=== PATIENT | male | born 1950 | race Caucasian/White ===

== ENCOUNTER 2016-08-04 08:55 | Day surgery (SDC) | payer MEDICARE ==
[2016-07-31 08:53] VITALS: BMI 37.6
[~2016-08-04 08:55] MED LIST: LACTATED RINGERS 1,000 ML IV SCH; LIDOCAINE 1% 20 ML VIAL (10MG/ML) FOR IV START INTRADERMA PRN
[2016-08-04 09:15] VITALS: TEMP 97
[2016-08-04] MEDS ORDERED: PROPOFOL 10 MG/ML 20 ML VIAL IV ONE (10:00)
--- NOTE | 2016-08-04 10:27 | P.PCN ---
Date of Procedure: 08/04/16 Preoperative Diagnosis: Postoperative Diagnosis: Procedure(s) Performed: Procedure: Colonoscopy and polypectomy. Preoperative diagnosis: Screening for neoplasia, patient has history of colon cancer. Postoperative diagnosis: Small polyp at the rectosigmoid junction snared but no large polyps or cancer. Preparation: HalfLytely prep. Sedation: Was provided by anesthesia. Brief clinical history: The patient is a 65-year-old male who was diagnosed with colon cancer at the hepatic flexure in July 2015 for which he underwent resection followed by 16 weeks of chemotherapy. The patient has been doing well and this would be a screening exam because of that history. Procedure: With the patient on his left lateral decubitus position and after informed consent and adequate sedation, the perianal area was inspected and it did not show any fissures or fistulas. There were no masses felt on digital rectal examination. The Olympus CFQ 160L video colonoscope was then inserted in the rectum in the usual fashion and advanced to the cecum. There was a small flat polypoid area at the rectosigmoid junction which I snared and retrieved by suction, but there were no other polyps or tumors. The resection area on the right side was free of cancer or other abnormalities. I retroflexed the endoscope in the rectum before the endoscope was with drawn. The patient tolerated the procedure well. Plan: The patient was reassured. With his history, I am recommending repeat colonoscopy in 1-2 years. He will follow up with you as planned. Implants: Indications for Procedure: Operative Findings: Description of Procedure:
[2016-08-04 10:30] VITALS: PULSE 56
[2016-08-04 10:47] VITALS: BP 131/70; RESP 20
== END 2016-08-04 10:58 | disposition home or self-care (01) ==
LOC: ORWHC2ENDO 08:55
DX: Z12.11 Encounter for screening for malignant neoplasm of colon (principal); D12.7 Benign neoplasm of rectosigmoid junction; Z90.49 Acquired absence of other specified parts of digestive tract; Z85.038 Personal history of other malignant neoplasm of large intestine; I48.91 Unspecified atrial fibrillation; I10 Essential (primary) hypertension; Z79.899 Other long term (current) drug therapy
CPT/HCPCS: 88305; 45385; J2704

== ENCOUNTER → 2016-08-18 | Outpatient (CLI) | payer MEDICARE ==
[2016-08-18 13:42] LABS: Blood Urea Nitrogen 23 mg/dL (9-20); Non-African American GFR(MDRD) >60 (>60 ml/min/1.73 sqM)
--- NOTE | 2016-08-18 14:44 | CT ---
EXAMINATION TYPE: CT abdomen pelvis w con DATE OF EXAM: 08/18/2016 COMPARISON: CT abdomen and pelvis August 06, 2015. PET/CT August 25, 2015 HISTORY: f/u colon ca CT DLP: 1982.8 mGycm, Automated Exposure Control for Dose Reduction was Utilized. CONTRAST: CT scan of the abdomen and pelvis is performed with oral and with IV Contrast, patient injected with 100 mL of Omnipaque 300. FINDINGS: LUNG BASES: No significant abnormality is appreciated. LIVER/GB: No significant abnormality is appreciated. PANCREAS: No significant abnormality is seen. SPLEEN: No significant abnormality is seen. ADRENALS: No significant abnormality is seen. KIDNEYS: No significant abnormality is seen. BOWEL: Oral contrast does not reach colonic level making evaluation slightly suboptimal. Surgical kathryn nges from right-sided partial colectomy are redemonstrated. There is some fecal prominence of distal ileal loop near level of anastomosis. No suspicious small or large bowel dilatation is identified. PROSTATE/SEMINAL VESICLES: Some central zone calcifications are seen in prostate gland. LYMPH NODES: No greater than 1cm abdominal or pelvic lymph nodes are appreciated. OSSEOUS STRUCTURES: Marked disc space narrowing lumbosacral junction is redemonstrated. OTHER: Scar above the umbilicus is seen near axial image 30. There are small left greater than right fat-containing inguinal hernias redemonstrated felt stable. IMPRESSION: No new mass or adenopathy is identified to suggest neoplastic recurrence
== END | disposition home or self-care (01) ==
LOC: RADCTMAIN 13:00
PROVIDERS: ATTEND Internal Medicine Hematology & Oncology
DX: C18.3 Malignant neoplasm of hepatic flexure (principal)
CPT/HCPCS: 82565; 84520; 74177; 36415; Q9967

== ENCOUNTER → 2017-08-19 | Outpatient (CLI) | payer MEDICARE ==
[2017-08-19 07:53] LABS: Blood Urea Nitrogen 22 mg/dL (9-20)
--- NOTE | 2017-08-19 09:58 | CT ---
EXAMINATION TYPE: CT abdomen pelvis w con DATE OF EXAM: 08/19/2017 COMPARISON: CT abdomen pelvis August 18, 2016 and older studies. PET/CT August 25, 2015. HISTORY: Colon cancer with history of bowel resection. CT DLP: 2198.5 mGycm, Automated Exposure Control for Dose Reduction was Utilized. CONTRAST: CT scan of the abdomen and pelvis is performed with oral and with IV Contrast, patient injected with 100 mL of Isovue 300. FINDINGS: LUNG BASES: Cardiomegaly is redemonstrated. Some patchy bibasilar linear scarring and/or atelectasis is again seen. LIVER/GB: There is stable subcentimeter lesion anteriorly left hepatic lobe axial image 20 that is to o small to further characterize. PANCREAS: No significant abnormality is seen. SPLEEN: No significant abnormality is seen. ADRENALS: No significant abnormality is seen. KIDNEYS: No significant abnormality is seen. BOWEL: The oral contrast reaches level of rectum. Surgical changes from right-sided hemicolectomy and small bowel anastomosis are redemonstrated. There appears to be interval colonization of the neoterm inal ileum. PROSTATE/SEMINAL VESICLES: No gross abnormality seen. LYMPH NODES: No greater than 1cm abdominal or pelvic lymph nodes are appreciated. OSSEOUS STRUCTURES: Marked disc space narrowing at lumbosacral junction is redemonstrated. There is d egenerative change at pubic symphysis with narrowing and subchondral cystic change redemonstrated. Th ere is straightening of spine with moderate multilevel spurring in the thoracic spine redemonstrated. OTHER: Focal eventration along vertical scar midline anterior abdominal wall axial image 34 is unchan ged from prior study without new hernia defect clearly identified. Small fat-containing incisional he rnia axial image 50 is slightly more prominent versus prior study coronal image 12 versus most recent prior. Stable small fat-containing left inguinal hernia. IMPRESSION: No new mass or adenopathy is seen to suggest neoplastic recurrence. Slightly more promin ent fat-containing ventral wall incisional hernia otherwise no significant interval change.
== END | disposition home or self-care (01) ==
LOC: RADCTMAIN 07:16
PROVIDERS: ATTEND Internal Medicine Hematology & Oncology
DX: C18.3 Malignant neoplasm of hepatic flexure (principal); K43.2 Incisional hernia without obstruction or gangrene; J30.2 Other seasonal allergic rhinitis
CPT/HCPCS: 82565; 84520; 74177; 36415; Q9967

== ENCOUNTER 2018-07-31 08:09 | Emergency (ER) | payer MEDICARE ==
[2018-07-31 08:14] VITALS: BP 162/87; PULSE 62; RESP 16; TEMP 97.9
--- NOTE | 2018-07-31 08:26 | ED ---
Extremity Problem HPI - General Chief complaint: Extremity Problem,Nontraumatic Stated complaint: rt leg pain Time Seen by Provider: 07/31/18 08:20 Source: patient Mode of arrival: wheelchair Limitations: no limitations - History of Present Illness Initial comments: 67-year-old male with history of previous right TKA, Gout, colon CA in remission presenting today for evaluation and ultrasound. Patient states that he has had right knee pain for the past 2 weeks. He states he has an upcoming appointment on Thursday with Dr. Lira to schedule a replacement of the left knee. He states he had x-rays done of the right knee to ensure that there is no issues with the prosthesis. He states this was obtained on Thursday of last week. He states Dr. Lira noted no abnormalities. Patient speaks surgeon thought it may be related to gout as patient has a strong history the patient was instructed to take colchicine PRN and his allopurinol daily. Patient states the knee has never been warm red swollen. He denies any swelling of the right lower extremity. He describes the pain as a sharp sensation that increases with weightbearing he states it radiates up towards the right mid thigh. Patient denies any pain from the back radiating downward. He denies recent falls or trauma. Patient denies any fever or chills night sweats or warmth to palpation of the knee. Patient states that the pain seems to increase at night. Patient states he is able to freely actively range at the right knee without difficulty or pain. Remaining ROS (-). Patient states he contacted his PCP today who Dr. Mendez who recommended presentation to the ER for an ultrasound to r/o DVT, then he is to f/u Thursday with PCP. Patient denies any posterior knee pain/calf pain. Upon arrival patient is afebrile. - Related Data Home Medications Medication Instructions Recorded Confirmed Losartan Potassium [Cozaar] 100 mg PO HS 12/20/13 07/31/18 hydrALAZINE HCL [Apresoline] 25 mg PO BID 05/14/15 07/31/18 Atenolol [Tenormin] 25 mg PO BID 07/12/15 07/31/18 Ergocalciferol (Vitamin D2) 125 mg PO MAURER 01/30/16 07/31/18 [Vitamin D2] Gabapentin [Neurontin] 200 mg PO BID 01/30/16 07/31/18 Aspirin [Adult Low Dose Aspirin EC] 81 mg PO DAILY 07/31/16 07/31/18 Allopurinol [Zyloprim] 300 mg PO AC-BRKFST 03/05/18 07/31/18 Colchicine [Colcrys] 0.6 mg PO DAILY PRN 07/31/18 07/31/18 Cyanocobalamin (Vitamin B-12) 1,000 mcg PO DAILY 07/31/18 07/31/18 [Vitamin B-12] Glucosamine Sulfate 1,000 mg PO HS 07/31/18 07/31/18 Glucosamine Sulfate 500 mg PO QAM 07/31/18 07/31/18 Ibuprofen [Motrin Ib] 400 mg PO TID PRN 07/31/18 07/31/18 Loratadine [Claritin] 10 mg PO QAM 07/31/18 07/31/18 Naproxen Sodium [Aleve] 440 mg PO BID PRN 07/31/18 07/31/18 Pyridoxine HCl (Vitamin B6) 200 mg PO QAM 07/31/18 07/31/18 [Vitamin B-6] Previous Rx's Medication Instructions Recorded Acetaminophen with Codeine 1 tab PO Q6H PRN 3 Days #12 tab 07/31/18 [Tylenol w/codeine #3] Allergies Allergy/AdvReac Type Severity Reaction Status Date / Time No Known Allergies Allergy Verified 07/31/18 08:55 Review of Systems ROS Statement: Those systems with pertinent positive or pertinent negative responses have been documented in the HPI. ROS Other: All systems not noted in ROS Statement are negative. Past Medical History Past Medical History: Atrial Fibrillation, Cancer, Hypertension Additional Past Medical History / Comment(s): DURING RT KNEE ARTHROSCOPY WENT INTO AFIB.( DEC 2013), hx colon cancer, neuropathy as a result of chemo History of Any Multi-Drug Resistant Organisms: None Reported Past Surgical History: Bowel Resection, Heart Catheterization, Hernia Repair, Loulou int Replacement, Orthopedic Surgery Additional Past Surgical History / Comment(s): CARDIOVERSION , daniela knee arthroscopy, rt knee replacement, MANIPULATION OF RIGHT KNEE ,08-02-15 COLECTOMY, mediport/later removed Past Anesthesia/Blood Transfusion Reactions: Previous Problems w/ Anesthesia Additional Past Anesthesia/Blood Transfusion Reaction / Comment(s): went into a- fib during knee surgery Past Psychological History: No Psychological Hx Reported Smoking Status: Never smoker Past Alcohol Use History: Daily Past Drug Use History: None Reported - Past Family History Sister(s) Family Medical History: Cancer Additional Family Medical History / Comment(s): LUNG CANCER Father Family Medical History: Coronary Artery Disease (CAD), Myocardial Infarction ([place]) Additional Family Medical History / Comment(s): FROM HEART DISEASE Mother Sister(s) Family Medical History: Cancer Additional Family Medical History / Comment(s): smoker, of lung cancer Mother Additional Family Medical History / Comment(s): BRAIN ANUERYSM AT AGE 60 General Exam - General Exam Comments Initial Comments: General: The patient is awake and alert, in no distress, and does not appear acutely ill. Eye: +3 mm pupils are equal, round and reactive to light, extra-ocular movements are intact. No nystagmus. There is normal conjunctiva bilaterally. No signs of icterus. Cardiovascular: There is a regular rate and rhythm. No murmur, rub or gallop is appreciated. Respiratory: Lungs are clear to auscultation, respirations are non-labored, breath sounds are equal. No wheezes, stridor, rales, or rhonchi. Musculoskeletal: Upon inspection of the knees bilaterally there is a longitudinal scar on the right anterior knee. There is no erythema, soft tissue swelling. Patient has no swelling of the calves. (-) Homans. Normal ROM at the knees b/l, no tenderness. Strength 5/5. Sensation intact both proximal and distal to injury site. Patient has tenderness to right knee with weight bearing. Radial and DP pulses equal bilaterally 2+. Neurological: A&O x 3. CN II-XII intact, There are no obvious motor or sensory deficits. Coordination appears grossly intact. Speech is normal. Skin: Skin is warm and dry and no rashes or lesions are noted. Psychiatric: Cooperative, appropriate mood & affect, normal judgment. Limitations: no limitations Course Vital Signs 07/31/18 07/31/18 08:11 10:37 Temperature 97.9 F 97.9 F Pulse Rate 62 62 Respiratory 16 16 Rate Blood Pressure 162/87 162/87 O2 Sat by Pulse 96 96 Oximetry Medical Decision Making - Medical Decision Making 67-year-old male presenting from right knee pain. This is been ongoing for the past 2-3 weeks. Patient has been evaluated by orthopedic surgery and received plain films on Thursday. Told there is no abnormality. Patient had imaging study of the right hip today with concern of possibly referred pain although patient does not appear overtly tender at the right hip. 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 It is unclear this is the etiology of pain appears more tender in the right knee. Patient is able to fully active and passively range of the right knee without any significant discomfort. When he weightbears upon standing that isn't experiences the pain. He states it begins in the knee and radiates up towards the leg. Although patient showed no signs of deep venous thrombosis there was no evidence of swelling or calf pain on examination patient was sent from primary care provider for ultrasound. Also was obtained revealing no evidence of acute DVT. Patient denies any constitutional symptoms. Patient does have history of gout. At this time is unclear the exact etiology of patient's right knee pain, however I do not feel this is infectious, or vascular. Most likely inflammatory. Patient has upcoming appointments with primary care provider as well as orthopedic surgery within the next 5 days. I recommended going to these appointments. Patient is provided pain medication for breakthrough pain in the emergency Department. As well as an outpatient prescription. All findings were discussed with patient as well as the importance of follow-up and return parameters. Patient was disch arged appearing well to discuss the case attending provider Dr. Zuluaga Disposition Clinical Impression: Right knee pain, Femoral acetabular impingement Disposition: HOME SELF-CARE Condition: Good Instructions (If sedation given, give patient instructions): Knee Pain (ED) Additional Instructions: Please use medication as discussed. Please follow-up with family doctor and orthopedic surgeon as scheduled. Please return to emergency room if the symptoms increase or worsen or for any other concerns, fever, knee swelling. Prescriptions: Acetaminophen with Codeine [Tylenol w/codeine #3] 1 tab PO Q6H PRN 3 Days #12 tab PRN Reason: Severe Pain Is patient prescribed a controlled substance at d/c from ED?: Yes When asked, does pt state using other controlled substances?: No If prescribed controlled substance>3 days was MAPS reviewed?: Prescribed <3 Days If opioid is for acute pain is fill amount 7 days or less?: Yes If Rx opioid, was Start Talking consent form obtained?: Yes Referrals: Fiorella Mendez MD [Primary Care Provider] - 1-2 days Time of Disposition: :15
[2018-07-31] MEDS ORDERED: HYDROcodone/APAP 7.5-325MG 1 EACH TAB PO ONE (08:49)
--- NOTE | 2018-07-31 09:21 | US ---
EXAMINATION TYPE: US venous doppler duplex LE RT DATE OF EXAM: 07/31/2018 9:12 AM COMPARISON: NONE CLINICAL HISTORY: Pain. Pain right leg for 10 days SIDE PERFORMED: right TECHNIQUE: The lower extremity deep venous system is examined utilizing real time linear array sonog anna with graded compression, doppler sonography and color-flow sonography. VESSELS IMAGED: External Iliac Vein (EIV) Common Femoral Vein Deep Femoral Vein Greater Saphenous Vein * Femoral Vein Popliteal Vein Small Saphenous Vein * Proximal Calf Veins (* superficial vessels) Right Leg: No evidence of DVT No popliteal fossa lesion is seen. IMPRESSION: THIS EXAMINATION IS NEGATIVE FOR DVT WITHIN THE RIGHT LEG.
--- NOTE | 2018-07-31 10:01 | XR ---
EXAMINATION TYPE: XR Hip Complete RT , 2 VIEWS DATE OF EXAM ORDERED: 07/31/2018 HISTORY: Pain. COMPARISON: None. FINDINGS: The right femoral head is nonspherical. There is a small "bump" on the femoral neck. There is mild degenerative change. No fracture, dislocation or other acute osseous lesion is seen. IMPRESSION: PLEASE CORRELATE CLINICALLY FOR FEMOROACETABULAR IMPINGEMENT SYNDROME.
== END 2018-07-31 10:37 | disposition home or self-care (01) ==
LOC: EC 08:09
DX: M25.851 Other specified joint disorders, right hip (principal); M25.561 Pain in right knee; I48.91 Unspecified atrial fibrillation; I10 Essential (primary) hypertension; M10.9 Gout, unspecified; Z85.038 Personal history of other malignant neoplasm of large intestine; Z92.21 Personal history of antineoplastic chemotherapy; Z95.818 Presence of other cardiac implants and grafts; Z96.651 Presence of right artificial knee joint; Z79.82 Long term (current) use of aspirin; Z79.899 Other long term (current) drug therapy
CPT/HCPCS: 73502; 99284

== ENCOUNTER → 2018-08-17 | Outpatient (CLI) | payer MEDICARE ==
[2018-08-17 10:15] LABS: African American GFR (CKD) >90 (>60 ml/min/1.73 sqM); Blood Urea Nitrogen 26 mg/dL (9-20)
--- NOTE | 2018-08-17 12:53 | CT ---
EXAMINATION TYPE: CT abdomen pelvis w con DATE OF EXAM: 08/17/2018 COMPARISON: 08/19/2017 HISTORY: 68-year-old male Follow up for colon CA. TECHNIQUE: Contiguous axial scanning of the abdomen and pelvis following administration of 100 ml Iso dano 300 IV contrast. Delayed images through the kidneys and coronal/sagittal reconstructions perform ed. CT DLP: 1875.3 mGycm Automated exposure control for dose reduction was used. FINDINGS: Heart borderline to mildly enlarged. Some mild dependent atelectasis. Mildly ectatic lower descending thoracic aorta at 2.9 cm. Stable tiny subcentimeter hypodensity anterior left liver lobe, likely cyst. Portal venous system is patent. No biliary ductal dilatation. Gallbladder, adrenal glands, spleen with hilar splenule, right kidney, and pancreas appear within nor mal limits. Tiny cortical hypodensity lateral left kidney is unchanged from 08/19/2017 suggesting a benign cyst. No dilated small bowel, free fluid, or free air. No mesenteric or retroperitoneal lymphadenopathy. Small epigastric ventral abdominal wall incisional hernia containing fat measuring 2.5 cm wide. A cou ple additional small incisional defects are present, just below measuring 2.1 cm wide. Not significan tly changed. Moderate stool in the right-sided colon. No pericolonic inflammatory change. Prior partial right-side d colon resection near the hepatic flexure. Mild circumferential bladder wall thickening. Suggestion of some scarring along the right inguinal re gion. Prostate gland mildly enlarged at 4.6 cm wide. No abnormal fluid collection in the pelvis or pe lvic lymphadenopathy. Bones: Degenerative changes at the hips and right SI joint. Additional degenerative changes lower lum bar spine. Diffuse disc bulge at L4-L5 cause moderate or severe spinal canal stenosis. IMPRESSION: 1. STABLE TINY SUBCENTIMETER HYPODENSITY LEFT LIVER LOBE, LIKELY A BENIGN CYST. PARTIAL RIGHT-SIDED C OLON RESECTION. NO EVIDENCE FOR METASTATIC DISEASE IN THE ABDOMEN OR PELVIS. 2. SMALL FAT-CONTAINING INCISIONAL HERNIAS ALONG THE SUPRAUMBILICAL VENTRAL MIDLINE. 3. CIRCUMFERENTIAL BLADDER WALL THICKENING COULD REPRESENT CHRONIC BLADDER WALL HYPERTROPHY OR CYSTIT IS. 4. POSSIBLE MODERATE OR SEVERE SPINAL CANAL STENOSIS SECONDARY TO DISC HERNIATION AT L4-L5.
== END ==
LOC: RADCTMAIN 09:36
PROVIDERS: ATTEND Internal Medicine Hematology & Oncology
DX: K43.2 Incisional hernia without obstruction or gangrene (principal); N32.89 Other specified disorders of bladder; Z03.89 Encounter for observation for other suspected diseases and conditions ruled out; Z91.013 Allergy to seafood
CPT/HCPCS: 82565; 84520; 74177; 36415; Q9967

== ENCOUNTER → 2019-08-30 | Outpatient (CLI) | payer MEDICARE ==
[2019-08-30 09:54] LABS: African American GFR (CKD) >90 (>60 ml/min/1.73 sqM); Blood Urea Nitrogen 18 mg/dL (9-20); Non-African American GFR(CKD) >90 (>60 ml/min/1.73 sqM)
--- NOTE | 2019-08-30 12:53 | CT ---
EXAMINATION TYPE: CT abdomen pelvis w con DATE OF EXAM: 08/30/2019 COMPARISON: CT 08/17/2018 HISTORY: Post OP Low back surgery June 2019. Follow up colon cancer per patient CT DLP: 3285.7 mGycm Automated exposure control for dose reduction was used. TECHNIQUE: Helical acquisition of images from the lung bases through the pelvis have been completed. CONTRAST: Performed with Oral Contrast and with IV Contrast, patient injected with 100 mL of Isovue 300. FINDINGS: The heart is enlarged. Coronary artery calcifications present. Antral thickening of the sto mach could be due to lack of distention is more conspicuous than on prior exam. Anterior abdominal wa ll hernia containing fat is stable. LUNG BASES: No significant abnormality is appreciated. AORTA: Root of the aorta measures 4.3 cm. Ascending aorta is approximately 4 cm, ascending aorta cielo sures 3.2 cm. LIVER/GB: Liver shows low attenuation likely due to hepatic steatosis, is stable and subcentimeter cy st unchanged in the left lobe, liver is enlarged. Gallbladder is normal. PANCREAS: No significant abnormality is seen. SPLEEN: No significant abnormality is seen. ADRENALS: No significant abnormality is seen. KIDNEYS: No significant abnormality is seen. REPRODUCTIVE ORGANS: Prostate shows associated calcification. BOWEL: There is postop partial colectomy as on prior. Retained fecal debris is present at the level of the patient's surgical site as well as in the splenic flexure, descending colon, no evident append icitis. FREE AIR: No Free Air visible. ASCITES: None visible. PELVIC ADENOPATHY: None visualized. RETROPERITONEAL ADENOPATHY: No Retroperitoneal Adenopathy visible. URINARY BLADDER: No significant abnormality is seen. OSSEOUS STRUCTURES: Postop changes are noted to be lumbar spine, there is streak artifact present du e to patient's metallic hardware.. IMPRESSION: CARDIOMEGALY, AORTIC ANEURYSM. FINDINGS IN THE STOMACH DESCRIBED ARE INDETERMINATE. NO EVIDENT REC URRENCE. CARDIOMEGALY, HEPATIC STEATOSIS, ADDITIONAL FINDINGS ABOVE.
== END | disposition home or self-care (01) ==
LOC: RADCTMAIN 09:01
PROVIDERS: ATTEND Internal Medicine Hematology & Oncology
DX: I51.7 Cardiomegaly (principal); K76.0 Fatty (change of) liver, not elsewhere classified; C18.3 Malignant neoplasm of hepatic flexure; Z98.890 Other specified postprocedural states; I71.4 Abdominal aortic aneurysm, without rupture
CPT/HCPCS: 82565; 84520; 74177; 36415; Q9967

== ENCOUNTER 2019-09-02 08:10 | Day surgery (SDC) | payer MEDICARE ==
[2019-08-31 10:47] VITALS: BMI 37.5
[2019-09-02 08:36] VITALS: TEMP 97.9
[2019-09-02] MEDS ORDERED: LIDOCAINE 1% (10MG/ML) FOR IV START INTRADERMA ONE (09:05)
[2019-09-02] MEDS: LACTATED RINGERS 1,000 ML IV SCH ×2 (09:05→09:06)
[2019-09-02] MEDS ORDERED: PROPOFOL 10 MG/ML 20 ML VIAL IV ONE (09:07)
--- NOTE | 2019-09-02 09:23 | P.PCN ---
Date of Procedure: 09/02/19 Procedure(s) Performed: BRIEF HISTORY: Patient is a 68-year-old pleasant white male scheduled for an elective colonoscopy as a part of surveillance of prior history of colon cancer diagnosed in 2016 status post right hemicolectomy followed by chemotherapy for surveillance colonoscopy PROCEDURE PERFORMED: Colonoscopy with biopsy. PREOPERATIVE DIAGNOSIS: History of colon cancer/colon polyps. IV sedation per Anesthesia. PROCEDURE: After informed consent was obtained, the patient, was brought into [facility] endoscopy unit. IV sedation was administered by Anesthesia under continuous monitoring. Digital rectal examination was normal. Initially the Olympus CF-160 flexible video colonoscope was then inserted in the rectum, gradually advanced into the right colon with ileocolic anastomosis was visualized and appeared normal. There was a 3 mm sessile polyp adjacent to the anastomosis which was biopsied. Mucosa of the transverse colon, descending colon, sigmoid colon, and rectum appeared normal. The proximal rectum there was a 3 mm polyp that was removed by cold biopsy. Retroflexion was performed in the rectum and grade 2 internal were seen. The patient tolerated the procedure well. IMPRESSION: 3 mm polyp at the anastomosis status post biopsy 5 mm sessile proximal rectal polyp status post removal by cold biopsy RECOMMENDATIONS: Findings of this examination were discussed with the patient as well as his family. He was advised to follow with the biopsy results and can have a repeat surveillance colonoscopy in 3 years.
[2019-09-02 09:50] VITALS: BP 188/84; PULSE 56; RESP 18
== END 2019-09-02 10:05 | disposition home or self-care (01) ==
LOC: ORWHC2ENDO 08:10
PROVIDERS: ATTEND Internal Medicine Gastroenterology
DX: Z12.11 Encounter for screening for malignant neoplasm of colon (principal); K62.1 Rectal polyp; K63.5 Polyp of colon; Z85.038 Personal history of other malignant neoplasm of large intestine; I10 Essential (primary) hypertension; I48.91 Unspecified atrial fibrillation; Z86.010 Personal history of colon polyps; Z90.49 Acquired absence of other specified parts of digestive tract; Z79.82 Long term (current) use of aspirin; Z79.899 Other long term (current) drug therapy
CPT/HCPCS: 88305; 45380; J2704

== ENCOUNTER → 2020-03-01 | Outpatient (CLI) | payer MEDICARE ==
--- NOTE | 2020-03-01 12:35 | CONS ---
CONSULTATION DATE OF SERVICE: 03/01/2020 This 69-year-old gentleman has been evaluated in Sleep Center for possible obstructive sleep apnea-hypopnea syndrome. HISTORY OF PRESENT ILLNESS/SLEEP-WAKE EVALUATION: Patient usual sleep schedule from 9:30-10 30 p.m. until 5:30 to 6:30 a.m. Usually no problems with falling asleep. He does not have a TV in bedroom. He wakes up from sleep several times with nocturia. During the day, patient takes one nap afternoon. According to his , he has loud snoring and witnessed episodes of stopped breathing during sleep. He wakes up with gasping for air and restless legs symptoms. [place] Sleepiness Scale is 4. PAST MEDICAL HISTORY: Positive for hypertension, gout, colon CA, peripheral neuropathy after chemotherapy for colon CA, back problems. PAST SURGICAL HISTORY: Bilateral knee replacement, surgery for colon CA. MEDICATIONS: Losartan 100 mg once a day, Atenolol 25 mg twice a day, hydralazine 25 mg twice a day, Neurontin 100 mg in the morning and 200 mg in the evening, allopurinol 300 mg in the morning, Claritin, aspirin 81 mg once a day, ibuprofen for pain in knee on p.r.n. basis. REVIEW OF SYSTEMS: Awakenings from sleep, snoring, witnessed episodes of stopped breathing symptoms of restless legs. FAMILY HISTORY: Hypertension, heart problems, diabetes. PHYSICAL EXAMINATION: GENERAL; gentleman without distress. VITAL SIGNS: BP 170/105, HR 78, RR 16, height 6 feet 1/2 inch, weight 317 pounds, BMI 42.4, temperature 97.5, oxygen saturation at room air 95%. HEENT: PERRLA, EOMI. Oropharynx extremely low position of soft palate, Mallampati 4, extremely wide neck 21-1/2 inches in circumference. NECK: Supple, no JVD. Thyroid is not palpable. LUNGS: Clear to percussion and to auscultation. Good air exchange. No wheezing or rhonchi. HEART: S1, S2 regular. No murmurs, gallops, or rubs. ABDOMEN: Obese. EXTREMITIES: No clubbing or cyanosis. PLATE MILL MILL HAND: Awake, alert, and oriented X3. Cranial nerves 2 to 7 intact. There is no fasciculation or atrophy. noted. No focal deficits observed. IMPRESSION: 1. Loud snoring, witnessed episodes of stopped breathing during the sleep, extremely low position of soft palate, wide neck, obstructive sleep apnea-hypopnea syndrome. 2. Obesity, body mass index 42.4. 3. Hypertension. 4. Restless leg symptoms; possibly periodic limb movements. 5. Gout. 6. History of colon cancer, status post surgical treatment and chemotherapy. 7. History of peripheral neuropathy after chemotherapy for colon cancer. 8. Back problems, status post back surgery. 9. Status post bilateral knee replacement. PLAN: 1. Polysomnography for evaluation of patient's breathing during sleep. 2. CPAP/BiPAP titration if sleep study confirms obstructive sleep apnea-hypopnea syndrome. 3. Preferable position during sleep on the side. 4. No driving if patient feels any sleepiness. 5. I will see patient for follow up visit to explain results of testing and following plan. Thank you very much for referring this patient for consultation. Sincerely, Salomon Rodriguez MD, PhD, FAASM Diplomat of Citizen [place] Board of Medical Specialties Citizen [place] Board of Internal Medicine Lockstitch Lining Setter of [facility] [place] MMODL / IJN: [id number] /
== END | disposition home or self-care (01) ==
LOC: SLEEP 09:57
PROVIDERS: ATTEND Internal Medicine
DX: G47.33 Obstructive sleep apnea (adult) (pediatric) (principal); E66.9 Obesity, unspecified; I10 Essential (primary) hypertension; M10.9 Gout, unspecified; G25.81 Restless legs syndrome; G47.69 Other sleep related movement disorders; Z85.038 Personal history of other malignant neoplasm of large intestine; Z86.69 Personal history of other diseases of the nervous system and sense organs; Z68.41 Body mass index [BMI] 40.0-44.9, adult; Z98.890 Other specified postprocedural states; Z96.653 Presence of artificial knee joint, bilateral
CPT/HCPCS: 99211

== ENCOUNTER 2020-06-05 07:58 | Day surgery (SDC) | payer MEDICARE ==
[2020-05-31 15:37] VITALS: BMI 39.8
[~2020-06-05 07:58] MED LIST changes: -LACTATED RINGERS 1,000 ML IV SCH; -LIDOCAINE 1% 20 ML VIAL (10MG/ML) FOR IV START INTRADERMA PRN; +SODIUM CHLORIDE 0.9% 1,000 ML IV SCH
[2020-06-05] MEDS ORDERED: SODIUM CHLORIDE 0.9% 500 ML 500 ML IV ONE (08:12)
[2020-06-05 08:30] VITALS: TEMP 96.9
[2020-06-05 08:55] LABS: Calcium 9.5 mg/dL (8.4-10.2); Potassium 4.5 mmol/L (3.5-5.1)
[2020-06-05] MEDS ORDERED: MIDAZOLAM 2 MG/2 ML VIAL ONE (09:08)
[2020-06-05] MEDS ORDERED: fentaNYL (PF) 50 MCG/ML 2 ML AMP ONE (09:08)
[2020-06-05] MEDS ORDERED: PROPOFOL 10 MG/ML 20 ML VIAL IV ONE (09:08)
[2020-06-05] MEDS ORDERED: SODIUM CHLORIDE 0.9% 1,000 ML IV SCH (09:45)
[2020-06-05 09:57] VITALS: RESP 18
--- NOTE | 2020-06-05 10:05 | CE ---
CARDIAC ELECTROPHYSIOLOGY REPORT CARDIOVERSION PROCEDURE NOTE: INDICATION: Atrial fibrillation. PROCEDURE: After explaining the procedure to the patient, its risks and the complications, after obtaining sedated state by the anesthesia department and performing transesophageal echocardiogram, a synchronized biphasic cardioversion using 200 joules was performed that was unsuccessful in restoring sinus mechanism. Subsequently 250 joules was used with tenriism of sinus mechanism. There was no immediate complication. MO / TRISTINN: [id number] /
--- NOTE | 2020-06-05 10:09 | ECHOT ---
TRANSESOPHAGEAL ECHOCARDIOGRAM INDICATION: Evaluation left atrial appendage. PROCEDURE: After explaining the procedure to the patient, its risks and the complications, blood pressure, heart rate, O2 saturation was monitored. The throat was sprayed with Cetacaine. He received sedation per Anesthesia Department. The probe was introduced into the esophagus. Images were obtained. Following that, the probe was removed. There was no immediate complication. FINDINGS: Left atrial size is dilated. Left atrial appendage is normal. Left ventricular size and systolic function are normal. The aortic valve, mitral valve and tricuspid valve are normal. Descending thoracic aorta appears to be normal. No pericardial effusion was noted. Contrast bubble study revealed no evidence of shunting across the interatrial septum. Doppler, pulse wave and color Doppler obtained and revealed a mild mitral and tricuspid regurgitation with mild aortic regurgitation. There was no shunting by color Doppler study. CONCLUSION: 1. Dilated left atrium with normal appearance of left atrial appendage. 2. Normal left ventricular size and systolic function. 3. Mild mitral, tricuspid and aortic regurgitation. 4. No shunting across the interatrial septum. 5. Normal appearance of the descending thoracic aorta. MMODL / IJN: [id number] /
[2020-06-05 11:03] VITALS: BP 143/84; PULSE 52
[2020-06-05] MEDS ORDERED: atenoloL 25 MG TAB PO SCH (21:00)
[2020-06-05] MEDS ORDERED: APIXABAN 5 MG TAB PO SCH (21:00)
[2020-06-05] MEDS ORDERED: NON FORMULARY DRUG (Losartan Potassium [Cozaar] 100 MG Tablet) PO SCH (21:00)
[2020-06-05] MEDS ORDERED: AMIODARONE 200 MG TAB PO SCH (21:00)
[2020-06-05] MEDS ORDERED: hydrALAZINE HCL 25 MG TAB PO SCH (21:00)
[2020-06-06] MEDS ORDERED: allopurinoL 300 MG TAB PO SCH (09:00)
== END 2020-06-05 11:03 | disposition home or self-care (01) ==
LOC: CATHCVL 07:58
PROVIDERS: ATTEND Internal Medicine Interventional Cardiology
DX: I48.11 Longstanding persistent atrial fibrillation (principal); I08.3 Combined rheumatic disorders of mitral, aortic and tricuspid valves; I73.9 Peripheral vascular disease, unspecified; I25.10 Atherosclerotic heart disease of native coronary artery without angina pectoris; I10 Essential (primary) hypertension; Z82.49 Family history of ischemic heart disease and other diseases of the circulatory system; G47.33 Obstructive sleep apnea (adult) (pediatric); Z99.89 Dependence on other enabling machines and devices; Z98.1 Arthrodesis status; Z90.49 Acquired absence of other specified parts of digestive tract; Z85.038 Personal history of other malignant neoplasm of large intestine; Z96.659 Presence of unspecified artificial knee joint; Z98.890 Other specified postprocedural states; Z87.891 Personal history of nicotine dependence; Z79.01 Long term (current) use of anticoagulants; Z79.899 Other long term (current) drug therapy
CPT/HCPCS: 93312; 93320; 93325; 92960; 80048; 87635; J2250; J3010; J2704

== ENCOUNTER → 2020-06-14 | Outpatient (CLI) | payer MEDICARE ==
--- NOTE | 2020-06-14 21:47 | SFUN ---
SLEEP CENTER FOLLOW UP NOTE DATE OF SERVICE: 06/14/2020 This 69-year-old gentleman has been followed in the sleep center for treatment of obstructive sleep apnea-hypopnea syndrome. Recently the patient had a polysomnogram which showed severe sleep apnea, and it was found that the patient has atrial fibrillation. Then the patient had CPAP titration, and respiration was normalized. Today is his first visit to the sleep clinic after he was started on treatment with CPAP. Since that time he has also had cardioversion and his rhythm was normalized. The patient feels much better with relationship to his sleep and how he feels during the day. [place] Sleepiness Scale is 1. I checked his CPAP unit. Range of the pressure is 7 to 14, average pressure 13.8. Usage is 30/30 nights for more than 4 hours. Leak is 30 L/minute, which is borderline. Apnea- hypopnea index is only 0.7, which is perfect. MEDICATIONS: 1. Losartan 100 mg once a day. 2. Atenolol 25 mg. 3. Hydralazine 25 mg twice a day. 4. Neurontin 100 mg in the morning and 200 mg in the evening. 5. Allopurinol 300 mg in the morning. 6. Claritin. 7. Aspirin 81 mg once a day. 8. Some other medications; the patient does not remember their names. PHYSICAL EXAMINATION: GENERAL: A pleasant patient in no distress. VITAL SIGNS: BP 188/87, HR 58, RR 20, oxygen saturation at room air 96%. Weight 306.8 pounds. Temperature 97.3. HEENT: PERRLA, EOMI. Evaluation of oropharynx showed tongue protrudes midline. Extremely low position of soft palate. Mallampati IV. NECK: Supple. No JVD. Thyroid is not palpable. Neck is wide. LUNGS: Clear to percussion and to auscultation. Good air exchange. No wheezing or rhonchi. HEART: S1, S2 regular. No murmurs, gallops or rubs. ABDOMEN: Soft and nontender. Bowel sounds are present. No organomegaly appreciated. EXTREMITIES: No clubbing or cyanosis. SPLICING MACHINE OPERATOR: Awake, alert, and oriented X3. Cranial nerves 2 to 7 intact. There is no fasciculation or atrophy. noted. No focal deficits observed. IMPRESSION: 1. Severe obstructive sleep apnea-hypopnea syndrome; apnea-hypopnea index 66.3 with oxygen desaturation to 66.1%, under full control with CPAP. Patient demonstrated 100% compliance with treatment, benefitting from treatment. 2. History of atrial fibrillation, at present regular heartbeats. 3. Hypertension. 4. Periodic limb movements have been documented during the sleep study. No complaints of leg movements at night at present. 5. Gout. 6. History of colon carcinoma, status post surgical treatment and chemotherapy. 7. History of peripheral neuropathy after chemotherapy for colon carcinoma. 8. Back problems. 9. Status post bilateral knee replacement. PLAN: I discussed with the patient all details about usage of the machine, including position of the machine, adjustments to humidity and removal of water in the morning. 1. Patient will continue to use PAP equipment every night for the whole night. 2. Sleep hygiene with regular time in bed for at least 7-1/2 to 8 hours. 3. Precautions related to driving. No driving if feeling sleepiness. 4. I will maintain all necessary prescription for PAP supplies including mask, tube, filters. 5. Watching weight. 6. Follow-up visit in 6 months or earlier if patient has any problems. Thank you very much for allowing me to participate in the management of your patient. Sincerely, Salomon Rodriguez MD, PhD, FAASM Diplomat of [place] Board of Medical Specialties [place] Board of Internal Medicine Falafel Cart Cook of [facility] [place] MMODL / TRISTNIN: [id number] /
== END ==
LOC: SLEEP 11:51
PROVIDERS: ATTEND Internal Medicine
DX: G47.33 Obstructive sleep apnea (adult) (pediatric) (principal); I48.91 Unspecified atrial fibrillation; I10 Essential (primary) hypertension; G47.61 Periodic limb movement disorder; M10.9 Gout, unspecified; M48.9 Spondylopathy, unspecified; Z85.038 Personal history of other malignant neoplasm of large intestine; Z96.653 Presence of artificial knee joint, bilateral; Z92.21 Personal history of antineoplastic chemotherapy; Z86.69 Personal history of other diseases of the nervous system and sense organs; Z79.82 Long term (current) use of aspirin; Z79.899 Other long term (current) drug therapy

== ENCOUNTER → 2020-08-28 | Outpatient (CLI) | payer MEDICARE ==
[2020-08-28 12:11] LABS: African American GFR (CKD) >90 (>60 ml/min/1.73 sqM); Blood Urea Nitrogen 28 mg/dL (9-20); Non-African American GFR(CKD) 78 (>60 ml/min/1.73 sqM)
--- NOTE | 2020-08-28 15:44 | CT ---
EXAMINATION TYPE: CT abdomen pelvis w con DATE OF EXAM: 08/28/2020 COMPARISON: 08/30/2019 INDICATION: Follow up colon cancer. DLP: 3022.3 mGycm, Automated exposure control for dose reduction was used. CONTRAST: 100 mL of Isovue 300. Study performed with Oral Contrast TECHNIQUE: Axial images were obtained from above the diaphragm to the pubic rami in the axial plane a t 5 mm thick sections. Reconstructed images are reviewed on the computer in the coronal plane. FINDINGS: Limited CT sections are obtained the lung bases. The lung bases are clear. CT ABDOMEN: Liver: Normal Spleen: Normal Pancreas: Normal Adrenal glands: The adrenal glands are normal. Gallbladder: Normal Kidneys: No masses are evident. No hydronephrosis is present. No cysts are present. Delayed images were obtained through the kidneys, which remain unremarkable. Aorta: Vascular calcification is within the aorta. Inferior vena cava: Normal. CT PELVIS: Loops of bowel within the abdomen and pelvis are normal. The ascending colon appears to be resected. No anastomotic obstruction is identified. There are loops of bowel which are incompletely distende d or lack oral contrast limiting their evaluation. Appendix: Not visualized. Urinary bladder: Normal. Genitourinary structures: Prostate appears normal. Osseous structures: No suspicious lytic or sclerotic lesions are evident. Fixation pedicle screws and rods are present L 4 through S1. IMPRESSIONS: 1. No suspicious changes to suggest recurrent or metastatic colon cancer
== END | disposition home or self-care (01) ==
LOC: RADCTMAIN 11:01
PROVIDERS: ATTEND Internal Medicine Hematology & Oncology
DX: C18.3 Malignant neoplasm of hepatic flexure (principal)
CPT/HCPCS: 82565; 84520; 74177; 36415; Q9967

== ENCOUNTER → 2020-11-14 | Outpatient (CLI) | payer MEDICARE ==
--- NOTE | 2020-11-14 11:00 | XR ---
EXAMINATION TYPE: XR chest 2V DATE OF EXAM: 11/14/2020 COMPARISON: 03/05/2018 INDICATION: Cough TECHNIQUE: Frontal and lateral views of the chest are obtained. FINDINGS: The heart size is normal. The pulmonary vasculature is normal. There is mild plate atelectasis at the left base. Lungs otherwise appear clear. IMPRESSION: 1. Mild left basilar atelectasis is present
== END | disposition home or self-care (01) ==
LOC: RADXRMAIN 10:16
PROVIDERS: ATTEND Internal Medicine
DX: J98.11 Atelectasis (principal)
CPT/HCPCS: 71046

== ENCOUNTER → 2021-01-24 | Outpatient (CLI) | payer MEDICARE ==
--- NOTE | 2021-01-24 22:14 | SFUN ---
SLEEP CENTER FOLLOW UP NOTE DATE OF SERVICE: 01/24/2021 This 70-year-old gentleman has been followed in Sleep Center for treatment of obstructive sleep apnea-hypopnea syndrome. The patient continues to use his CPAP equipment every night, getting his supplies on time. [place] Sleepiness Scale today is 3, which is normal. I checked his CPAP unit. It is in automatic regimen. Range of the pressure is 7 to 14, average pressure 13.3. Usage is 30/30 nights for more than 4 hours, average 8 hours per night. Leak is borderline, 28 L/minute. Apnea-hypopnea index is 0.5, which is absolutely perfect. MEDICATIONS: 1. Eliquis 5 mg twice a day. 2. Hydralazine mg twice a day. 3. 200 mg twice a day. 4. Allopurinol 300 mg once a day. 5. Atenolol 25 mg once a day. 6. Atorvastatin 40 mg once a day. 7. Amiodarone 100 mg once a day. 8. Losartan 100 mg once a day. 9. Vitamin D3, B6, B12 supplements. PHYSICAL EXAMINATION: GENERAL APPEARANCE: Pleasant gentleman without distress. VITAL SIGNS: BP 155/81, HR 71, RR 15, height 6 feet 1/4 inch, weight 307.2 pounds, body mass index 41.4, temperature 97.7, oxygen saturation at room air 96%. HEENT: PERRLA, EOMI, evaluation of oropharynx showed tongue protrudes midline. Extremely low position of soft palate; Mallampati IV. NECK: Supple, no JVD. Thyroid is not palpable. LUNGS: Clear to percussion and to auscultation. Good air exchange. No wheezing or rhonchi. HEART: S1, S2 regular. No murmurs, gallops, or rubs. ABDOMEN: Obese. EXTREMITIES: No clubbing or cyanosis. RN HEART: Awake, alert, and oriented X3. Cranial nerves 2 to 7 intact. There is no fasciculation or atrophy. noted. No focal deficits observed. IMPRESSION: 1. Severe obstructive sleep apnea-hypopnea syndrome; apnea-hypopnea index 63.3 with oxygen desaturation to 66.1%. Patient demonstrated great compliance with treatment. Normal respiration on CPAP. 2. History of atrial fibrillation, at present in regular rhythm. 3. Hypertension. 4. Periodic limb movements during the sleep test. No complaints about leg movements at night. 5. History of colon carcinoma, status post surgical treatment and chemotherapy. 6. Gout. 7. History of peripheral neuropathy. 8. Back problems. 9. Status post bilateral knee replacement. PLAN: 1. Patient will continue to use PAP equipment every night for the whole night. 2. Sleep hygiene with regular time in bed for at least 7-1/2 to 8 hours. 3. Precautions related to driving. No driving if feeling sleepiness. 4. I will maintain all necessary prescription for PAP supplies including mask, tube, filters. 5. Watching weight. 6. Follow-up visit in 6 months or earlier if patient has any problems. Thank you very much for allowing me to participate in the management of your patient. Sincerely, Salomon Rodriguez MD, PhD, FAASM Diplomat of [place] Board of Medical Specialties Sleep Medicine Board of [place] Board of Internal Medicine Housing Director of [facility] [place] MMODL / IJN: [id number] /
== END | disposition home or self-care (01) ==
LOC: SLEEP 13:08
PROVIDERS: ATTEND Internal Medicine
DX: G47.33 Obstructive sleep apnea (adult) (pediatric) (principal); I10 Essential (primary) hypertension; Z85.038 Personal history of other malignant neoplasm of large intestine; Z96.653 Presence of artificial knee joint, bilateral

== ENCOUNTER → 2021-03-12 | Outpatient (CLI) | payer MEDICARE ==
[2021-03-13 05:53] LABS: Chol/HDL Ratio 1.86 Ratio; LDL Cholesterol,Calculated 51.5 mg/dL (0.0-131.0); VLDL Calculation 12.66 mg/dL (5.00-40.00)
[2021-03-13 06:08] LABS: ALT 29 U/L (10-49); AST 42 U/L (14-35)
== END | disposition home or self-care (01) ==
LOC: LABWHC1 11:00
PROVIDERS: ATTEND Nurse Practitioner Adult Health
DX: E78.2 Mixed hyperlipidemia (principal)
CPT/HCPCS: 36415; 80061; 84450; 84460

== ENCOUNTER → 2021-09-05 | Outpatient (CLI) | payer MEDICARE ==
--- NOTE | 2021-09-05 11:18 | P.PN ---
Subjective DATE: 09/05/2021 FOLLOW UP VISIT. Patient with obstructive sleep apnea hypopnea syndrome return to sleep center for follow-up visit. Information from previous visit have been reviewed. Patient is using PAP equipment every night for the whole night, getting PAP supplies in time. The patient does not have significant problems with the mask, PAP unit and humidification. [place] sleepiness scale is 2. I checked information from PAP unit. PAP unit pressure 7-14, average 13.8 cm H2O. Usage is 100 % for more then 4 hours, average 9 hours per night. Leak is 26 l/m, which is in acceptable range. Apnea Hypopnea Index is 0.6, which is normal. MEDICATIONS:1. Eliquis 5 mg twice a day 2. Hydralazine 75 mg twice a day 3. Neurontin 200 mg twice a day 4. Allopurinol 300 mg once a day 5. Atenolol 25 mg once a day 6. Atorvastatin 40 mg once a day 7. Amiodarone 100 mg once a day 8. Losartan 100 mg once a day During physical exam: GENERAL: A pleasant patient without any distress. VITAL SIGNS: BP 166/82, HR 62, RR 18 , weight 319.4, temperature 97.2, oxygen saturation at room air 96 % . HEENT: PERRLA, EOMI.low position of soft palate, Mallapati4 . NECK: Supple. No JVD. LUNGS: Clear to percussion and to auscultation. Good air exchange. No wheezing or rhonchi. HEART: S1, S2 regular. ABDOMEN: Soft and nontender. Obese EXTREMITIES: No clubbing or cyanosis. GUITAR INSTRUCTOR: Awake, alert, and oriented x3. No focal deficit. Impressions: 1. Obstructive sleep apnea-hypopnea syndrome. Patient demonstrated great compliance with treatment, benefiting from treatment. 2. Obesity, patient increased his weight on 12 pounds comparing with the previous visit. 3. Hypertension. 4. History of lateral fibrillation, presently in regular rate and. 5. History of periodic limb movements. Presently no complaints on leg movements during the sleep. 6. History of colon see status post surgical treatment and chemotherapy. 7. Grout. 8. History of peripheral neuropathy. 9. Back problems. 10. Status post bilateral knee replacement. Plan: 1. Continue using PAP equipment every night for the whole night. 2. To change air filter at least 1-2 times per month. 3. PAP unit should stay lower then position of the head. 4. Advised patient to remove all remaining water from humidifier canister daily and make it dry after each usage. Refill canister with fresh distilled water before each usage. 5. Sleep hygiene with regular time in bed for at least 8 hours. 6. Precautions related to driving. No driving if feel any sleepiness. 7. I will maintain prescription for PAP supplies including mask, tube, filters. 8. Follow up visit in 6 months or earlier if patient has any problems. 9. Watching weight. Thank you very much for allowing me to participate in the management of your patient. Salomon Rodriguez MD, PhD, FAASM. Diplomat of [place] Board of Sleep Medicine, Sleep Medicine Board by [place] Board of Internal Medicine Insole And Outsole Splitter of [facility] [place]
== END | disposition home or self-care (01) ==
LOC: SLEEP 10:36
PROVIDERS: ATTEND Internal Medicine
DX: G47.33 Obstructive sleep apnea (adult) (pediatric) (principal); E66.9 Obesity, unspecified; I10 Essential (primary) hypertension; M10.9 Gout, unspecified; Z86.79 Personal history of other diseases of the circulatory system; Z98.890 Other specified postprocedural states; Z96.653 Presence of artificial knee joint, bilateral
CPT/HCPCS: 99212

== ENCOUNTER → 2021-10-10 | Outpatient (CLI) | payer MEDICARE ==
[2021-10-10 10:40] LABS: African American GFR (CKD) >90 (>60 ml/min/1.73 sqM); Blood Urea Nitrogen 21 mg/dL (9-20); Non-African American GFR(CKD) 82 (>60 ml/min/1.73 sqM)
--- NOTE | 2021-10-10 12:25 | CT ---
EXAMINATION TYPE: CT angio chest DATE OF EXAM: 10/10/2021 11:14 AM COMPARISON: CT abdomen and pelvis 08/28/2020, 08/30/2019 HISTORY: Thoracic aortic aneurysm without rupture CT DLP: 1384.6 mGycm Automated exposure control for dose reduction was used. CONTRAST: CTA scan of the thorax is performed without and with IV Contrast, patient injected with 100 mL of Iso dano 370, pulmonary embolism protocol. . FINDINGS: LUNGS: The lungs are grossly clear, there is no concerning parenchymal mass or nodule identified. T here is no pleural effusion or pneumothorax seen. The tracheobronchial tree is patent. Linear change s at the lung base most typical of scar or atelectasis. MEDIASTINUM: There is satisfactory enhancement of the pulmonary artery and its branches, there is no CT evidence for pulmonary embolism. There are no greater than 1 cm hilar or mediastinal lymph nodes. The heart is enlarged and there is coronary artery calcification. Trace of pericardial fluid noted. Assessment of the aortic root is limited due to artifact. Aortic bruit estimate and today's exam and approximate 4.2 cm. Descending aorta measured 4 cm. OTHER: Tiny hypodensity involving the dome of the liver within the left lobe is stable from prior ex am and measures less than 5 mm and is too small to characterize but statistically most likely related to a cyst. Hypertrophic and degenerative changes of the spine. IMPRESSION: 1. Stable appearing mild aneurysmal dilation of the ascending aorta. 2. Stable cardiomegaly and coronary artery calcification.
== END | disposition home or self-care (01) ==
LOC: RADCTMAIN 09:51
PROVIDERS: ATTEND Surgery Vascular Surgery
DX: I71.2 Thoracic aortic aneurysm, without rupture (principal)
CPT/HCPCS: 82565; 84520; 71275; 36415; Q9967

== ENCOUNTER → 2021-11-04 | Outpatient (CLI) | payer MEDICARE ==
[2021-11-04 14:54] LABS: African American GFR (CKD) 76.8 (60.0-200.0); Anion Gap 11.6 mmol/L (10.00-18.00); Blood Urea Nitrogen 20.2 mg/dL (9.0-27.0); Carbon Dioxide 23.9 mmol/L (20.0-27.5); Non-African American GFR(CKD) 66.2 (60.0-200.0); Potassium 4.4 mmol/L (3.5-5.5)
== END | disposition home or self-care (01) ==
LOC: LABWHC1 10:25
PROVIDERS: ATTEND Internal Medicine Interventional Cardiology
DX: I10 Essential (primary) hypertension (principal)
CPT/HCPCS: 36415; 80051; 82565; 84520

== ENCOUNTER → 2022-08-20 | Day surgery (SDC) | payer MEDICARE ==
[2022-08-15 10:22] VITALS: BMI 36.8
[~2022-08-20] MED LIST changes: +LACTATED RINGERS 1,000 ML IV SCH; +LIDOCAINE 1% (10MG/ML) FOR IV START INTRADERMA PRN; +LIDOCAINE 2% INJ 20 MG/ML (2 ML VIAL) ONE; +PROPOFOL 10 MG/ML 20 ML VIAL IV ONE; -SODIUM CHLORIDE 0.9% 1,000 ML IV SCH
[2022-08-20 09:46] VITALS: TEMP 98.1
--- NOTE | 2022-08-20 10:11 | P.PCN ---
Date of Procedure: 08/20/22 Procedure(s) Performed: BRIEF HISTORY: Patient is a 72-year-old pleasant white male scheduled for an elective colonoscopy as a part of surveillance of prior history of colon cancer. He was diagnosed with colon cancer in 2016. Last colonoscopy was 3 years ago. PROCEDURE PERFORMED: Colonoscopy with snare polypectomy. PREOPERATIVE DIAGNOSIS: History of colon cancer. IV sedation per Anesthesia. PROCEDURE: After informed consent was obtained, the patient, was brought into the endoscopy unit. IV sedation was administered by Anesthesia under continuous monitoring. Digital rectal examination was normal. Initially the Olympus CF-160 flexible video colonoscope was then inserted in the rectum, gradually advanced into the right colon without any difficulty. Careful examination was performed as the scope was gradually being withdrawn. The ileocolic anastomosis appeared normal.In the transverse colon there was a 5 limited polyp removed by cold snare polypectomy. In the descending colon there was another 5 mm polyp that was removed by cold snare polypectomy. In the sigmoid:colon there was a 3 mm polyp removed by snare polypectomy and in the rectum there were 2 polyps measuring 20 mm in size removed by snare polypectomy. Retroflexion was performed in the rectum and no lesions were seen. The patient tolerated the procedure well. IMPRESSION: Normal ileocolic anastomosis 5 mm transverse colon polyp status post polypectomy 5 mm descending colon polyp status post polypectomy\ 3 mm sigmoid polyp status post polypectomy 2 mm and 3 mm rectal polyp status post polypectomy RECOMMENDATIONS: Findings of this examination were discussed with the patient as well as his family. He was advised to follow with the biopsy results. If the biopsy results adenoma he can have a repeat colonoscopy in 3 years.. 7
[2022-08-20 10:18] VITALS: PULSE 50
[2022-08-20 10:32] VITALS: BP 150/74; RESP 18
== END | disposition home or self-care (01) ==
LOC: ORWHC2ENDO 09:13
PROVIDERS: ATTEND Internal Medicine Gastroenterology
DX: Z12.11 Encounter for screening for malignant neoplasm of colon (principal); D12.4 Benign neoplasm of descending colon; D12.3 Benign neoplasm of transverse colon; K62.1 Rectal polyp; I10 Essential (primary) hypertension; I48.91 Unspecified atrial fibrillation; G47.33 Obstructive sleep apnea (adult) (pediatric); Z86.010 Personal history of colon polyps; Z79.899 Other long term (current) drug therapy
CPT/HCPCS: 88305; 45385; J2704; J2001

== ENCOUNTER → 2022-09-04 | Outpatient (CLI) | payer MEDICARE ==
--- NOTE | 2022-09-04 10:51 | P.PN ---
Subjective DATE: 09/04/2022 FOLLOW UP VISIT. Patient with obstructive sleep apnea hypopnea syndrome return to sleep center for follow-up visit. Information from previous visit have been reviewed. Patient is using PAP equipment every night for the whole night, getting PAP supplies in time. The patient does not have significant problems with the mask, PAP unit and humidification. [place] sleepiness scale is 2, which is perfect. I checked information from PAP unit. PAP unit pressure 7-14, average 13.6 cm H2O. Usage is 100 % for more then 4 hours, average 8.6 hours per night. Leak is 32 l/m, which is slightly increased. Apnea Hypopnea Index is 0.4, which is normal. MEDICATIONS:1. Eliquis 5 mg twice a day 2. Hydralazine 75 mg twice a day 3. Neurontin 200 mg twice a day 4. Allopurinol 300 mg once a day 5. Atenolol 25 mg once a day 6. Atorvastatin 40 mg once a day 7. Amiodarone 100 mg once a day 8. Losartan 100 mg once a day During physical exam: GENERAL: A pleasant patient without any distress. VITAL SIGNS: BP 158/77, HR 56, RR 18 , weight 293.8, temperature 98.1, oxygen saturation at room air 96 % . HEENT: PERRLA, EOMI.low position of soft palate, Mallapati 4 . NECK: Supple. No JVD. LUNGS: Clear to percussion and to auscultation. Good air exchange. No wheezing or rhonchi. HEART: S1, S2 regular. ABDOMEN: Soft and nontender. Slightly obese EXTREMITIES: No clubbing or cyanosis. BLANKBOOK STITCHING MACHINE OPERATOR: Awake, alert, and oriented x3. No focal deficit. Impressions: 1. Obstructive sleep apnea-hypopnea syndrome. Patient demonstrated great co mpliance with treatment, benefiting from treatment. 2. Obesity, patient lost 26 pounds since previous visit. 3. Hypertension. 4. History of atrial fibrillation in the past. 5. History of periodic limb movements, no complaints presently 6. Gout 7. History of colon cancer, status post surgical treatment of chemotherapy. 8. Status post bilateral knee replacement. 9. History of peripheral neuropathy. 10. Back problems. . Plan: 1. Continue using PAP equipment every night for the whole night. 2. To change air filter at least 1-2 times per month. 3. PAP unit should stay lower then position of the head. 4. Advised patient to remove all remaining water from humidifier canister daily and make it dry after each usage. Refill canister with fresh distilled water before each usage. 5. Sleep hygiene with regular time in bed for at least 8 hours. 6. Precautions related to driving. No driving if feel any sleepiness. 7. I will maintain prescription for PAP supplies including mask, tube, filters. 8. Follow up visit in 6 months or earlier if patient has any problems. 9. Watching and continue losing weight. Thank you very much for allowing me to participate in the management of your patient. Salomon Rodriguez MD, PhD, FAASM. Diplomat of [place] Board of Sleep Medicine, Sleep Medicine Board by [place] Board of Internal Medicine Cardiology Specialist of [facility] [place]
== END ==
LOC: 3 N SLEEP 10:03
PROVIDERS: ATTEND Internal Medicine
DX: G47.33 Obstructive sleep apnea (adult) (pediatric) (principal); I48.91 Unspecified atrial fibrillation; M10.9 Gout, unspecified; I10 Essential (primary) hypertension; M54.59 Other low back pain; G62.9 Polyneuropathy, unspecified; E66.9 Obesity, unspecified; Z98.890 Other specified postprocedural states; Z85.038 Personal history of other malignant neoplasm of large intestine; Z99.89 Dependence on other enabling machines and devices; Z79.01 Long term (current) use of anticoagulants
CPT/HCPCS: 99212

== ENCOUNTER → 2023-04-17 | Outpatient (CLI) | payer MEDICARE ==
[2023-04-17 11:53] LABS: African American GFR (CKD) 88 (>60 ml/min/1.73 sqM); Blood Urea Nitrogen 21 mg/dL (9-20); Non-African American GFR(CKD) 76 (>60 ml/min/1.73 sqM)
--- NOTE | 2023-04-17 12:50 | CT ---
Exam: CT Angiography of the Chest. Date: 2023. Comparison: 10/10/2021. History: Follow-up aneurysm. Technique: CT examination of the chest was performed without and 4. No acute abnormality in the right tibial fracture is not no acute osseous abnormalities are appreciated on this examination. Similar a christine in the mid tibia is otherwise seen. Following the intravenous administration of 100 mL of Isovue 300. CT dose lowering techniques were used, to include: automated exposure control, adjustment for pa tient size, and/or use of iterative reconstruction. FINDINGS: Mediastinum and Jihan: There is no axillary, mediastinal or hilar lymphadenopathy. Pleural and Pericardial spaces: There are no pleural or pericardial effusions. Upper Abdomen: The visualized upper abdomen is unremarkable. Cardiovascular: There is mild vascular calcification throughout the thoracic aorta with mild dilation of the ascending thoracic aorta to 4 cm. No dissection. Mild patchy coronary artery calcifications a re seen in the left anterior descending. Pulmonary Artery: There are no filling defects in the pulmonary arteries. Lung Parenchyma and Airways: The lungs are clear. Bones: No fracture or aggressive osseous lesion. IMPRESSION: 1. Unchanged mild dilation of the ascending thoracic aorta. 2. Mild coronary artery calcifications and mild cardiomegaly. 3. No evidence of pneumonia, pleural or pericardial effusions.
== END | disposition home or self-care (01) ==
LOC: RADCTMAIN 11:00
PROVIDERS: ATTEND Internal Medicine Interventional Cardiology
DX: I51.7 Cardiomegaly (principal); I77.810 Thoracic aortic ectasia; I25.10 Atherosclerotic heart disease of native coronary artery without angina pectoris
CPT/HCPCS: 82565; 84520; 71275; 36415; Q9967

== ENCOUNTER → 2023-09-03 | Outpatient (CLI) | payer MEDICARE ==
[2023-09-03 10:51] VITALS: BP 152/78; PULSE 64; RESP 16; TEMP 97.7
--- NOTE | 2023-09-03 11:08 | P.PROGSL ---
Subjective DATE: 09/03/2023 FOLLOW UP VISIT. Patient with obstructive sleep apnea hypopnea syndrome return to sleep center for follow-up visit. Information from previous visit have been reviewed. Patient is using PAP equipment every night for the whole night, getting PAP supplies in time. The patient does not have significant problems with the mask, PAP unit and humidification. [place] sleepiness scale is 1, which is perfect. I checked information from PAP unit. PAP unit pressure 7-14, average 13.7 cm H2O. Usage is 100% for more then 4 hours, average 8.5 hours per night. Leak is 22 l/m, which is in acceptable range. Apnea Hypopnea Index is 1.2, which is normal. MEDICATIONS have been reviewed, please see below. During physical exam: GENERAL: A pleasant patient without any distress. VITAL SIGNS: Please see below, weight is 300 lbs. HEENT: PERRLA, EOMI.low position of soft palate, Mallapati 4 . NECK: Supple. No JVD. LUNGS: Clear to percussion and to auscultation. Good air exchange. No wheezing or rhonchi. HEART: S1, S2 regular. ABDOMEN: Soft and nontender. Slightly obese EXTREMITIES: No clubbing or cyanosis. FINGERPRINT CLASSIFIER: Awake, alert, and oriented x3. No focal deficit. Impressions: 1. Obstructive sleep apnea-hypopnea syndrome. Patient demonstrated great compliance with treatment, benefiting from treatment. 2. Obesity, BMI 40.1, patient increased his weight on 7 pounds comparing with previous visit. 3. Hypertension. 4. History of atrial fibrillation in the past. 5. History of periodic limb movements, no clinical complaints presently. 6. Gout. 7. History of colon cancer, status post surgical treatment and chemotherapy. 8. Status post bilateral knee replacement. 9. Back problems. 10. History of peripheral neuropathy. Plan: 1. Continue using PAP equipment every night for the whole night. 2. Sleep hygiene with regular time in bed for at least 7.5-8 hours 3. PAP unit should stay lower then position of the head. 4. Advised patient to remove all remaining water from humidifier canister daily and make it dry after each usage. Refill canister with fresh distilled water before each usage. 5. Watching and losing weight. 6. Precautions related to driving. No driving if feel any sleepiness. 7. I will maintain prescription for PAP supplies including mask, tube, filters. 8. Follow up visit in 6 months or earlier if patient has any problems. Thank you very much for allowing me to participate in the management of your patient. Salomon Rodriguez MD, PhD, FAASM. Diplomat of [employer], Sleep Medicine Board by [employer] Home Paraprofessional [facility] [place] Objective - Vital Signs Vital Signs: Vital Signs Temp 97.7 F 09/03/23 10:50 Pulse 64 09/03/23 10:50 Resp 16 09/03/23 10:50 BP 152/78 09/03/23 10:50 Pulse Ox 95 09/03/23 10:50 FiO2 Intake & Output 09/02/23 09/03/23 09/03/23 18:59 06:59 18:59 Weight 136.078 kg Home Medications: Home Medications Medication Instructions Recorded Confirmed Type Losartan Potassium [Cozaar] 100 mg PO HS 12/20/13 09/03/23 History hydrALAZINE HCL [Apresoline] 25 mg PO BID 05/14/15 09/03/23 History atenoloL [Tenormin] 25 mg PO BID 07/12/15 09/03/23 History Gabapentin [Neurontin] 200 mg PO BID 01/30/16 09/03/23 History allopurinoL [Zyloprim] 300 mg PO QAM 03/05/18 09/03/23 History Cyanocobalamin (Vitamin B-12) 1,000 mcg PO DAILY 07/31/18 09/03/23 History [Vitamin B-12] Loratadine [Claritin] 10 mg PO DAILY PRN 07/31/18 09/03/23 History Pyridoxine HCl (Vitamin B6) 200 mg PO DAILY 07/31/18 09/03/23 History [Vitamin B-6] Cholecalciferol [Vitamin D3 (25 5,000 unit PO DAILY 08/31/19 09/03/23 History Mcg = 1000 Iu)] Amiodarone HCl [Pacerone] 100 mg PO HS 05/31/20 09/03/23 History Apixaban [Eliquis] 5 mg PO BID 08/15/22 09/03/23 History Atorvastatin [Lipitor] 40 mg PO DAILY 08/15/22 09/03/23 History hydroCHLOROthiazide [Hydrodiuril] 25 mg PO DAILY 08/15/22 09/03/23 History
== END ==
LOC: 3 N SLEEP 10:15
PROVIDERS: ATTEND Internal Medicine
DX: G47.33 Obstructive sleep apnea (adult) (pediatric) (principal); E66.9 Obesity, unspecified; I10 Essential (primary) hypertension; M10.9 Gout, unspecified; M53.9 Dorsopathy, unspecified; I48.91 Unspecified atrial fibrillation; Z87.39 Personal history of other diseases of the musculoskeletal system and connective tissue; Z85.038 Personal history of other malignant neoplasm of large intestine; Z96.653 Presence of artificial knee joint, bilateral; Z86.69 Personal history of other diseases of the nervous system and sense organs; Z92.21 Personal history of antineoplastic chemotherapy; Z99.89 Dependence on other enabling machines and devices; Z68.41 Body mass index [BMI] 40.0-44.9, adult; Z79.01 Long term (current) use of anticoagulants; Z79.899 Other long term (current) drug therapy
CPT/HCPCS: 99212

== ENCOUNTER 2023-10-14 05:58 | Day surgery (SDC) | payer MEDICARE ==
[2023-10-13 11:28] VITALS: BMI 38.5
[~2023-10-14 05:58] MED LIST changes: -LACTATED RINGERS 1,000 ML IV SCH; -LIDOCAINE 1% (10MG/ML) FOR IV START INTRADERMA PRN; -LIDOCAINE 2% INJ 20 MG/ML (2 ML VIAL) ONE; -PROPOFOL 10 MG/ML 20 ML VIAL IV ONE; +SODIUM CHLORIDE 0.9% 1,000 ML IV SCH
[2023-10-14] MEDS ORDERED: LACTATED RINGERS 1,000 ML IV SCH (06:02)
[2023-10-14] MEDS ORDERED: LIDOCAINE 1% (10MG/ML) FOR IV START INTRADERMA PRN (06:02)
[2023-10-14] MEDS: IV FLUID CONTINUATION 1,000 ML IV ONE (06:16)
[2023-10-14 06:31] VITALS: TEMP 97.2
[2023-10-14] MEDS: SODIUM CHLORIDE 0.9% 500 ML DEHP FREE BAG IV STA (06:56)
[2023-10-14 07:03] LABS: African American GFR (CKD) 90 (>60 ml/min/1.73 sqM); Anion Gap 8 mmol/L; Blood Urea Nitrogen 27 mg/dL (9-20); Calcium 9.8 mg/dL (8.4-10.2); Carbon Dioxide 25 mmol/L (22-30); Chloride 106 mmol/L (98-107); Glucose 108 mg/dL (74-99); Non-African American GFR(CKD) 78 (>60 ml/min/1.73 sqM); Potassium 4.6 mmol/L (3.5-5.1); Sodium 139 mmol/L (137-145)
[2023-10-14] MEDS ORDERED: PROPOFOL 10 MG/ML 20 ML VIAL IV ONE (07:08)
[2023-10-14] MEDS ORDERED: LIDOCAINE 2% (PF) 20 MG/ML 5 ML VIAL ONE (07:08)
[2023-10-14] MEDS: BENZOCAINE SPRAY 1 CAN TOPICAL ONE (07:14)
[2023-10-14] MEDS ORDERED: LORATADINE 10 MG TAB PO PRN (07:31)
--- NOTE | 2023-10-14 07:35 | P.PCN ---
Date of Procedure: 10/14/23 Description of Procedure: Indication: Atrial fibrillation Procedure Description: After explaining the procedure to the patient, it's risk and complications, blood pressure, heart rate and O2 saturation were monitored. The throat was sprayed with Cetacaine. Patient received sedation per anesthesia department. The probe was introduced into the esophagus without difficulty. Images were obtained. Following that, the probe was removed. There was no immediate complication. Findings: Left atrial size is dilated, spontaneous contrast was noted. Left atrial appendage appears to be normal. The left ventricular systolic function is normal. The aortic valve revealed mild fibrocalcific changes. The mitral valve is normal. Tricuspid valve is normal. Descending thoracic aorta appears to be normal. No pericardial fusion was noted. Contrast bubble study revealed no shunting across the interatrial septum. Doppler: Pulse wave and color Doppler were obtained, and revealed moderate mitral and mild tricuspid regurgitation. Mild aortic regurgitation was noted. There was no shunting by color Doppler study. Conclusion: 1. Dilated left atrium with normal appearance of the left atrial appendage 2. Normal ventricle size and systolic function 3. Moderate mitral regurgitation 4. Mild aortic and tricuspid regurgitation 5. No shunting across the interatrial septum. Cardioversion: After performing IVANIA and obtaining sedated state a synchronized biphasic cardioversion using 200 J was performed with rastafarian of sinus mechanism, there was no immediate complications.
[2023-10-14 08:15] VITALS: RESP 16
[2023-10-14 08:52] VITALS: BP 128/81; PULSE 51
[2023-10-14] MEDS ORDERED: APIXABAN 5 MG TAB PO SCH (21:00)
[2023-10-14] MEDS ORDERED: LOSARTAN 50 MG TAB PO SCH (21:00)
[2023-10-14] MEDS ORDERED: CHOLECALCIFEROL 125 MCG (5000 IU) TABLET PO SCH (21:00)
[2023-10-14] MEDS ORDERED: AMIODARONE 100 MG TAB PO SCH (21:00)
[2023-10-14] MEDS ORDERED: GABAPENTIN 100 MG CAP PO SCH (21:00)
[2023-10-14] MEDS ORDERED: hydrALAZINE HCL 25 MG TAB PO SCH (21:00)
[2023-10-15] MEDS ORDERED: atenoloL 25 MG TAB PO SCH (09:00)
[2023-10-15] MEDS ORDERED: ATORVASTATIN 40 MG TAB PO SCH (09:00)
[2023-10-15] MEDS ORDERED: hydroCHLOROthiazide 25 MG TAB PO SCH (09:00)
[2023-10-15] MEDS ORDERED: CYANOCOBALAMIN 500 MCG TAB PO SCH (09:00)
[2023-10-15] MEDS ORDERED: PYRIDOXINE 50 MG TAB PO SCH (09:00)
[2023-10-15] MEDS ORDERED: allopurinoL 300 MG TAB PO SCH (09:00)
== END 2023-10-14 08:58 | disposition home or self-care (01) ==
LOC: OR 05:58
PROVIDERS: ATTEND Internal Medicine Interventional Cardiology
DX: I48.91 Unspecified atrial fibrillation (principal); I10 Essential (primary) hypertension; E78.2 Mixed hyperlipidemia; I48.11 Longstanding persistent atrial fibrillation; G47.33 Obstructive sleep apnea (adult) (pediatric); Z87.891 Personal history of nicotine dependence; Z79.899 Other long term (current) drug therapy; F10.90 Alcohol use, unspecified, uncomplicated
CPT/HCPCS: 80048; 92960; 93312; 93320; 93325

== ENCOUNTER → 2024-01-19 | Outpatient (CLI) | payer MEDICARE ==
[2024-01-19 15:51] LABS: Chol/HDL Ratio 2.18 Ratio; VLDL Calculation 17.84 mg/dL (5.00-40.00)
[2024-01-19 15:52] LABS: ALT 38 U/L (10-49); AST 33 U/L (14-35); Albumin 4.2 g/dL (3.8-4.9); Albumin/Globulin Ratio 1.75 Ratio (1.60-3.17); Alkaline Phosphatase 87 U/L (41-126); BUN/Creat Ratio 23.18 Ratio (12.00-20.00); Blood Urea Nitrogen 25.5 mg/dL (9.0-27.0); Calcium 9.5 mg/dL (8.7-10.3); Carbon Dioxide 25.8 mmol/L (21.6-31.8); Chloride 107 mmol/L (96-109); Globulin 2.4 g/dL (1.6-3.3); Glucose 103 mg/dL (70-110); LDL Cholesterol,Calculated 56.4 mg/dL (0.0-131.0); Potassium 4.4 mmol/L (3.5-5.5); Sodium 144 mmol/L (135-145); Total Bilirubin 0.5 mg/dL (0.3-1.2); Total Protein 6.6 g/dL (6.2-8.2)
== END | disposition home or self-care (01) ==
LOC: LABWHC1 08:15
PROVIDERS: ATTEND Internal Medicine Interventional Cardiology
DX: I48.11 Longstanding persistent atrial fibrillation (principal); E78.2 Mixed hyperlipidemia
CPT/HCPCS: 36415; 80053; 80061; 84443

== ENCOUNTER → 2024-07-11 | Outpatient (CLI) | payer MEDICARE ==
[2024-07-11 10:27] LABS: ALT 43 U/L (10-49); AST 40 U/L (14-35); Albumin 4.2 g/dL (3.8-4.9); Albumin/Globulin Ratio 1.83 Ratio (1.60-3.17); Alkaline Phosphatase 101 U/L (41-126); Blood Urea Nitrogen 22.9 mg/dL (9.0-27.0); Calcium 9.6 mg/dL (8.7-10.3); Carbon Dioxide 25.2 mmol/L (21.6-31.8); Chloride 104 mmol/L (96-109); Chol/HDL Ratio 2.31 Ratio; Globulin 2.3 g/dL (1.6-3.3); Glucose 93 mg/dL (70-110); LDL Cholesterol,Calculated 55.5 mg/dL (0.0-131.0); Potassium 4.1 mmol/L (3.5-5.5); Sodium 143 mmol/L (135-145); Total Bilirubin 0.4 mg/dL (0.3-1.2); Total Protein 6.5 g/dL (6.2-8.2)
== END | disposition home or self-care (01) ==
LOC: LABWHC1 07:00
PROVIDERS: ATTEND Internal Medicine Interventional Cardiology
DX: E78.2 Mixed hyperlipidemia (principal)
CPT/HCPCS: 36415; 80053; 80061

== ENCOUNTER → 2024-09-01 | Outpatient (CLI) | payer MEDICARE ==
[2024-09-01 10:34] VITALS: BP 132/76; PULSE 57; RESP 18; TEMP 97.8
--- NOTE | 2024-09-01 10:54 | P.PROGSL ---
Subjective DATE: 09/01/2024 FOLLOW UP VISIT. Patient with obstructive sleep apnea hypopnea syndrome return to sleep center for follow-up visit. Information from previous visit have been reviewed. Patient is using PAP equipment every night for the whole night, getting PAP supplies in time. The patient does not have significant problems with the mask, PAP unit and humidification. [place] sleepiness scale is 1 which is perfect. I checked information from PAP unit. PAP unit pressure 7-14 cm H2O. Usage is 100% for more then 4 hours, average 8.4 hours per night. Leak is 25 l/m, which is in acceptable range. Apnea Hypopnea Index is 0.5, which is normal. MEDICATIONS: Eliquis 5 mg twice a day, Neurontin 200 mg twice a day, allopurinol 300 mg in the morning, propranolol 120 mg once a day, atorvastatin 40 mg once a day, amiodarone 100 mg once a day, losartan 100 mg once a day, hydrochlorothiazide 25 mg once a day. During physical exam: GENERAL: A pleasant patient without any distress. VITAL SIGNS: Please see below, weight is 305.2 lbs. HEENT: PERRLA, EOMI.low position of soft palate, Mallapati 4 . NECK: Supple. No JVD. LUNGS: Clear to percussion and to auscultation. Good air exchange. No wheezing or rhonchi. HEART: S1, S2 regular. ABDOMEN: Soft and nontender. Obese EXTREMITIES: No clubbing or cyanosis. VALUATION CONSULTANT: Awake, alert, and oriented x3. No focal deficit. Impressions: 1. Obstructive sleep apnea-hypopnea syndrome. Patient demonstrated great compliance with treatment, benefiting from treatment. 2. Obesity, BMI 41.3, patient increased weight and 5 pounds comparing with previous visit. 3. History of atrial fibrillation in the past. 4. Hypertension. 5. History of periodic limb movements, no complaints at the present time. 6. History of gout. 7. History of colon cancer, status post surgical treatment and chemotherapy. 8. Back problems. 9. History of peripheral neuropathy. 10. Status post bilateral knee replacement. 11. Status post surgical treatment for region detachment in 2023 Plan: 1. Continue using PAP equipment every night for the whole night. 2. Sleep hygiene with regular time in bed for at least 7.5-8 hours 3. PAP unit should stay lower then position of the head. 4. Advised patient to remove all remaining water from humidifier canister daily and make it dry after each usage. Refill canister with fresh distilled water before each usage. 5. Watching and losing weight. 6. Precautions related to driving. No driving if feel any sleepiness. 7. I will maintain prescription for PAP supplies including mask, tube, filters. 8. Follow up visit in 8 months or earlier if patient has any problems. Thank you very much for allowing me to participate in the management of your patient. Salomon Rodriguez MD, PhD, FAASM. Diplomat of [employer], Sleep Medicine Board by [employer] Inspector of [facility] [place] Objective - Vital Signs Vital Signs: Vital Signs Temp 97.8 F 09/01/24 10:31 Pulse 57 L 09/01/24 10:31 Resp 18 09/01/24 10:31 BP 132/76 09/01/24 10:31 Pulse Ox 96 09/01/24 10:31 FiO2 Intake & Output 08/31/24 09/01/24 09/01/24 18:59 06:59 18:59 Weight 138.402 kg Home Medications: Home Medications Medication Instructions Recorded Confirmed Type Losartan Potassium [Cozaar] 100 mg PO HS 12/20/13 10/14/23 History hydrALAZINE HCL [Apresoline] 75 mg PO BID 05/14/15 10/13/23 History atenoloL [Tenormin] 25 mg PO QAM 07/12/15 10/13/23 History Gabapentin [Neurontin] 200 mg PO BID 01/30/16 10/13/23 History allopurinoL [Zyloprim] 300 mg PO QAM 03/05/18 10/13/23 History Cyanocobalamin (Vitamin B-12) 1,000 mcg PO QAM 07/31/18 10/13/23 History [Vitamin B-12] Loratadine [Claritin] 10 mg PO DAILY PRN 07/31/18 10/13/23 History Pyridoxine HCl (Vitamin B6) 200 mg PO QAM 07/31/18 10/13/23 History [Vitamin B-6] Cholecalciferol [Vitamin D3 (25 5,000 unit PO HS 08/31/19 10/13/23 History Mcg = 1000 Iu)] Amiodarone HCl [Pacerone] 100 mg PO HS 05/31/20 10/14/23 History Apixaban [Eliquis] 5 mg PO BID 08/15/22 10/13/23 History Atorvastatin [Lipitor] 40 mg PO QAM 08/15/22 10/13/23 History hydroCHLOROthiazide [Hydrodiuril] 25 mg PO QAM 08/15/22 10/13/23 History Amiodarone [Cordarone] 100 mg PO HS 10/13/23 10/14/23 History
== END ==
LOC: 3 N SLEEP 10:16
PROVIDERS: ATTEND Internal Medicine
DX: G47.33 Obstructive sleep apnea (adult) (pediatric) (principal); E66.9 Obesity, unspecified; I10 Essential (primary) hypertension; Z68.41 Body mass index [BMI] 40.0-44.9, adult; Z86.69 Personal history of other diseases of the nervous system and sense organs; Z86.79 Personal history of other diseases of the circulatory system; Z85.038 Personal history of other malignant neoplasm of large intestine; Z96.653 Presence of artificial knee joint, bilateral; Z92.21 Personal history of antineoplastic chemotherapy; Z98.890 Other specified postprocedural states; Z99.89 Dependence on other enabling machines and devices
CPT/HCPCS: 99212